=== PATIENT | female | born 1990 | race Caucasian/White ===

== ENCOUNTER 2016-11-20 18:35 | Emergency (ER) ==
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
[2016-11-20 22:31] VITALS: BP 137/81
--- NOTE | 2016-11-21 11:10 | Diag Imaging Result Document ---
PROCEDURE NAME: HEAD/C-SPINE W/O CONTRAST - 11/20/[address], 11/20/2016: A CT dose reduction protocol was used. COMPARISON: None. FINDINGS: The ventricles and sulci are normal in size and contour. No intracranial mass or hemorrhage. The skull is intact. There is some mild sinusitis on the left. IMPRESSION: Mild sinusitis but no acute disease. CT CERVICAL SPINE, 11/20/2016: A CT dose reduction protocol was used. COMPARISON: None. FINDINGS: Alignment is anatomic. Vertebral body heights and intervertebral disc spaces are preserved. Neural foramina are patent. Soft tissues are clear. IMPRESSION: Negative exam. [facility]
== END 2016-11-20 22:31 | disposition home or self-care (01) ==
LOC: P.ED 18:35
DX: H57.12 Ocular pain, left eye (principal); S00.212A Abrasion of left eyelid and periocular area, initial encounter; M54.2 Cervicalgia; R51 Headache; M25.531 Pain in right wrist; J32.9 Chronic sinusitis, unspecified; E11.9 Type 2 diabetes mellitus without complications; Z83.3 Family history of diabetes mellitus; Z82.49 Family history of ischemic heart disease and other diseases of the circulatory system; Y04.0XXA Assault by unarmed brawl or fight, initial encounter
CPT/HCPCS: 70450; 72125